=== PATIENT | female | born 1950 | race Caucasian/White ===

== ENCOUNTER 2016-10-17 16:53 | Emergency (ER) | payer MEDICARE, OTHER ==
--- NOTE | ~2016-10-17 | CT2 ---
[facility] A Service of [facility] RADIOLOGY TEXT RESULTS PATIENT: ALEJANDRO RADER LOCATION: [facility] : 49 UNIT #: [id number] AGE: [address]: Cesilia Spears MD SEX: F ORDER DR: [id number] [facility] [address] [place], [place] [address] [id number] E MR#: [id number] Acc #: [id number] NAME: ALEJANDRO RADER : 1950 SEX: F STUDY DATE/TIME: 10/17/2016 18:30 UNIT: [facility] ROOM: STUDY DESCRIPTION: CT Abd and Pelv W Cont Attending Physician: Cesilia Spears M.D. Ordering Physician: Cesilia Spears M.D. Primary Care Physician: Charles Lindsey M.D. MEDICAL IMAGING REPORT This report is preliminary unless electronic signature is present EXAM CT abdomen and pelvis with oral and IV contrast. HISTORY Nausea, vomiting, diarrhea for 1 week. Back pain. TECHNIQUE CT abdomen and pelvis was performed with oral and IV contrast. This CT exam was performed with one or more of the following radiation dose reduction techniques: automatic exposure control, adjustment of mA and/or kV according to patient size, and iterative reconstruction. FINDINGS CT abdomen: There is subsegmental atelectasis in both lung bases, greater in the inferior right lower lobe. Bfqm-qd-kmkurkvs elevation of the right hemidiaphragm. The liver, gallbladder, spleen, pancreas, and adrenal glands are unremarkable. Small bilateral incidental renal cysts. No bowel dilatation. Normal appendix. Spinal fusion from L3-S1 with grade II spondylolisthesis of L5 on S1. Streak artifact from the fusion hardware partly degrades multiple images. CT pelvis: No free fluid. Hysterectomy. Urinary bladder is unremarkable. IMPRESSION 1. No acute findings in the abdomen or pelvis. 2. No urinary obstruction or bowel obstruction. No ascites or inflammatory stranding. 3. Normal appendix. 4. Multilevel lower lumbar spinal fusion. Hysterectomy. Dictated by... [facility] A Service of [facility] RADIOLOGY TEXT RESULTS PATIENT: ALEJANDRO RADER LOCATION: [facility] : 49 UNIT #: [id number] AGE: [address]: Cesilia Spears MD SEX: F ORDER DR: Lance Rodriguez M.D. THIS IS AN ELECTRONICALLY VERIFIED REPORT Lance Rodriguez M.D. at 10/18/2016 10:42 PM DFL/vinnie TD: 10/18/2016 14:25 JOB #: [id number] MEDICAL IMAGING REPORT COPY
[~2016-10-17 16:53] MED LIST: ABILIFY; ABILIFY2 MG PO; ACETAMINOPHEN P1 TA5 PO; ALBUTEROL17 GM INH; ALENDRONATE SOD70 M1 PO; ALPRAZOLAM PO; ALPRAZOLAM0.25 MG PO; ALPRAZOLAM1 M1 PO; ALPRAZOLAM1 MG; ALPRAZOLAM1 MG PO; AMBIEN PO; AMBIEN10 MG PO; AMLODIPINE BESYL5 MG PO; AVELOX400 M1 PO; BACTROBAN; BUMEX PO; BUMEX1 MG PO; BYSTOLIC5 MG PO; CALAN PO; CALAN SR PO; CALCIUM + D 6001 TA1 PO; CALCIUM CARB PO; CECLOR PO; CEFAZOLIN IV; CIPRO PO; COL-RITE50 MG PO; COMBIVENT U/D3 M1 INH; COMBIVENT14.7 GM INH; COREG3.125 MG PO; CYMBALTA PO; DAKIN'S MODIF1000 ML EXT; DELTASONE20 MG PO; DESYREL50 MG DOB; DESYREL50 MG PO; DULOXETINE HCL60 M1 PO; EFFEXOR; EFFEXOR PO; FAMOTIDINE PO; FAST RELIEF LAX10 MG PR; FLEXERIL10 MG PO; FOSAMAX70 MG PO; GLUCOPHAGE XR500 MG PO; HYDRALAZINE HCL50 MG PO; HYDROCODON-ACE1 EAC5 PO; IBUPROFEN800 MG PO; IPRATR-ALBUTEROL3 ML INH; K-DUR20 ME2 PO; KCL PO; LEVAQUIN PO; LEVAQUIN750 M1 PO; LIBRIUM25 M1 PO; LISINOPRIL PO; LOPRESSOR PO; LORTAB 5/500 TA1 TA1 PO; LORTAB 7.5-5001 TAB PO; MACROBID100 MG DOB; MAG-OX 400400 MG PO; MEDROL DOSEPAK4 MG DOB; MEDROL4 MG/DOSE- PO; MICONAZOLE 11 EACH TOP; MS CONTIN30 MG PO; MULTI-VITAMIN1 TAB PO; MULTIVITAMIN1 UDCAP PO; NORCO 10-325 TA1 TAB PO; NORCO 10/325 TA1 TAB PO; NORCO 10/3251 TAB PO; NORCO 5/325 TAB1 TAB PO; NORVASC PO; PATIENT'S PHARMACY; PAXIL PO; PERCOCET PO; PHENERGAN PO; PHENERGAN PR; PRAVACHOL PO; PREDNISONE PO; PREMARIN; PREMARIN PO; PRISTIQ50 MG PO; PROAIR RESPICL90 MCG; PROAIR RESPICL90 MCG INH; PROTONIX PO; PULMICORT200 MCG/AE INH; SANTYL15 G1 TP; SENNA PO; SEROQUEL XR1 EACH PO; SEROQUEL25 MG PO; SINGULAIR PO; SYMBICORT INH; TOPROL XL; TOPROL XL PO; TRAMADOL HCL50 M2 PO; TYLOX1 CAP 5/50 DOB; VASOLEX OINTMEN30 GM; VICODIN 5/500 T1 TAB PO; XANAX0.5 M1 PO; XANAX1 MG PO; ZESTORETIC 20/11 TAB PO; ZOCOR PO; ZOFRAN PO
[2016-10-17 16:57] LABS: BASOPHIL# 0.1 X10e3 (0-0.3); BASOPHIL% 0.4 % (0-2.5); EOSINOPHIL# 0.5 X10e3 (0-0.7); EOSINOPHIL% 4.2 % (0.0-7.0); HEMATOCRIT 38.4 % (35.0-45.0); HEMOGLOBIN 12.5 gm/dL (12.0-16.0); LYMPHOCYTE# 1.7 X10e3 (1.0-3.5); MEAN CELL VOLUME 91.1 FL (83-96); MEAN CORPUSCULAR HEMOGLOBIN 29.5 PG (28-34); MEAN CORPUSCULAR HGB CONC 32.4 g/dL (30-36); MEAN PLATELET VOLUME 8.4 FL (6.5-11.5); MONOCYTE# 0.9 X10e3 (0-1.0); MONOCYTE% 6.8 % (3.0-12.0); NEUTROPHIL# 9.8 X10e3 (1.5-7.1); NEUTROPHIL% 75.6 % (40-75); PLATELET COUNT 456 X10e3 (140-420); RED BLOOD COUNT 4.22 X10e (3.90-5.30); RED CELL DISTRIBUTION WIDTH 16.5 % (11.0-15.5); WHITE BLOOD COUNT 12.9 X10e3 (4.0-10.5)
[2016-10-17 17:09] LABS: DIFF IND NO
[2016-10-17 17:19] LABS: ALBUMIN SERUM 3.8 g/dL (3.5-5.0); ALKALINE PHOSPHATASE 79 U/L (32-92); ALT (SGPT) 13 U/L (10-40); AMYLASE 87 U/L (0-46); AST (SGOT) 27 U/L (10-42); BILIRUBIN, DIRECT 0.1 mg/dL (0.0-0.2); BILIRUBIN,INDIRECT 0.5 mg/dL (0.0-0.9); BILIRUBIN,TOTAL 0.6 mg/dL (0.2-2.0); BLOOD UREA NITROGEN 13 mg/dL (9-23); BUN/CREATININE RATIO 21.66; CALCIUM SERUM 10.3 mg/dL (8.4-10.2); CARBON DIOXIDE 34 mmol/L (22-31); CHLORIDE 98 mmol/L (100-111); CREATININE SERUM 0.6 mg/dL (0.6-1.4); GLOM FILT RATE Estimated ABOVE60 mL/min (>60); GLUCOSE FASTING 122 mg/dL (70-110); LIPASE 45 U/L (22-51); SODIUM 141 mmol/L (135-145)
[2016-10-17 20:14] LABS: URINE SOURCE CLEAN CATCH
[2016-10-17 20:22] LABS: URINE APPEARANCE CLEAR; URINE BILIRUBIN NEG (NEG); URINE BLOOD NEG (NEG); URINE COLOR YELLOW; URINE GLUCOSE NEG (NEG); URINE KETONE NEG (NEG); URINE LEUKOCYTE ESTERASE TRACE (NEG); URINE NITRATE NEG (NEG); URINE PROTEIN NEG (NEG); URINE SPECIFIC GRAVITY 1.021 (1.003-1.035); URINE UROBILINOGEN 0.2 MG/DL (NEG)
[2016-10-17 20:25] LABS: CULTURE INDICATED? YES; URBCS1 AUWI 0-2 /[HPF] (0-2); URINE BACTERIA AUWI 2+ (NEGATIVE); URINE SQUAMOUS EPITHELIAL CELL OCC /[HPF]
== END 2016-10-17 21:30 | disposition home or self-care (01) ==
LOC: CED 16:53
PROVIDERS: Student in an Organized Health Care Education/Training Program
DX: A09 Infectious gastroenteritis and colitis, unspecified (principal); E11.9 Type 2 diabetes mellitus without complications; I10 Essential (primary) hypertension; J45.909 Unspecified asthma, uncomplicated; Z90.710 Acquired absence of both cervix and uterus; Z88.0 Allergy status to penicillin; Z88.1 Allergy status to other antibiotic agents; Z98.890 Other specified postprocedural states
CPT/HCPCS: 36415; 74177; 80048; 80076; 81003; 82150; 83690; 85025; 87086; 87088; 87186; 96361; 96374; 96375; 99284; J2270; J2405; J2550; Q9967

== ENCOUNTER 2016-12-06 16:54 | Emergency (ER) | payer MEDICARE, OTHER ==
--- NOTE | ~2016-12-06 | CR170 ---
[facility]. [facility] A Service of [facility] RADIOLOGY TEXT RESULTS PATIENT: ALEJANDRO RADER LOCATION: [facility] : 49 UNIT #: [id number] AGE: [address]: Deepika Garzon SEX: F ORDER DR: [id number] [facility] [address] [place], [place] [address] [id number] E MR#: [id number] Acc #: [id number] NAME: ALEJANDRO RADER : 1950 SEX: F STUDY DATE/TIME: 12/06/2016 16:53 UNIT: [facility] ROOM: STUDY DESCRIPTION: CR Knee 2 Views Rt Attending Physician: Deepika Garzon P.A.-C. Ordering Physician: Deepika Garzon P.A.-C. Primary Care Physician: Charles Lindsey M.D. MEDICAL IMAGING REPORT This report is preliminary unless electronic signature is present EXAM Right knee, 2 views. HISTORY Knee pain and swelling for 1 week. No recent injury. FINDINGS 2 views of the right knee demonstrate total knee arthroplasty with long-stem tibial and femoral components. The proximal margin of the femoral component is not included. The alignment appears satisfactory. No fracture or effusion. IMPRESSION No acute finding. Revision total knee arthroplasty with the visualized components in satisfactory position. Dictated by... Lance Rodriguez M.D. THIS IS AN ELECTRONICALLY VERIFIED REPORT Lance Rodriguez M.D. at 12/06/2016 11:44 PM NEETA/yefri TD: 12/06/2016 19:16 JOB #: [id number] MEDICAL IMAGING REPORT Page 1 of 1 COPY
[2016-12-06 17:56] LABS: URINE BACTERIA 2+ (NEG); URINE HYALINE CAST 0-2 /[HPF]; URINE SQUAMOUS EPITHELIAL CELL OCCAS /[HPF]; URINE TRANSITIONAL EPI CELLS OCCAS /[HPF]
== END 2016-12-06 19:13 | disposition home or self-care (01) ==
LOC: CED 16:54
PROVIDERS: Physician Assistant
DX: N39.0 Urinary tract infection, site not specified (principal); M25.561 Pain in right knee; G89.29 Other chronic pain
CPT/HCPCS: 73560; 87086; 87088; 87186; 96372; 96374; 96375; 99284; J1885; J2270; J2405

== ENCOUNTER 2017-01-19 19:49 | Inpatient (IN) | payer MEDICARE, OTHER ==
--- NOTE | ~2017-01-19 | CT71 ---
[facility] A Service [facility] RADIOLOGY TEXT RESULTS PATIENT: ALEJANDRO RADER LOCATION: [facility] : 48 UNIT #: [id number] AGE: [address]: Tone Moreno MD SEX: F ORDER DR: [id number] [facility] [address] [place], [place] [address] [id number] I MR#: [id number] Acc #: [id number] NAME: ALEJANDRO RADER : 1950 SEX: F STUDY DATE/TIME: 01/19/2017 23:29 UNIT: [facility] ROOM: [id number] STUDY DESCRIPTION: CT Head Wo Contrast Attending Physician: Tone Moreno M.D. Ordering Physician: Cesilia Spears M.D. Primary Care Physician: Charles Lindsey M.D. MEDICAL IMAGING REPORT This report is preliminary unless electronic signature is present EXAM CT scan head without contrast. INDICATIONS Fall with head trauma and pain in right forehead, laceration to right eye. Injury happened today. TECHNIQUE This CT exam was performed with one or more of the following radiation dose reduction techniques: Automatic exposure control, adjustment of mA and/or kV according to patient size, and iterative reconstruction. COMPARISON 12/12/15. FINDINGS Unenhanced images were obtained through the brain. There is mild generalized atrophy. There are no masses or extraaxial fluid collections or hemorrhage. Skull is intact. IMPRESSION Normal study except for mild atrophy. Dictated by... Emerson Benavidez M.D. THIS IS AN ELECTRONICALLY VERIFIED REPORT Emerson Benavidez M.D. at 01/20/2017 1:22 PM FEL/bd TD: 01/20/2017 09:45 JOB #: [id number] [facility] A Service [facility] RADIOLOGY TEXT RESULTS PATIENT: ALEJANDRO RADER LOCATION: [facility] [id number] : 49 UNIT #: [id number] AGE: [address]: Tone Moreno MD SEX: F ORDER DR: MEDICAL IMAGING REPORT Page 1 of 1 COPY
--- NOTE | ~2017-01-19 | CT57 ---
[facility] A Service of [facility] RADIOLOGY TEXT RESULTS PATIENT: ALEJANDRO RADER LOCATION: [facility] [id number] : [birth year] UNIT #: [id number] AGE: [address]: Tone Moreno MD SEX: F ORDER DR: [id number] [facility] [address] [place], [place] [address] [id number] I MR#: [id number] Acc #: [id number] NAME: ALEJANDRO RADER : 1950 SEX: F STUDY DATE/TIME: 01/19/2017 23:41 UNIT: [facility] ROOM: [id number] STUDY DESCRIPTION: CT Chest Wo Cont Attending Physician: Tone Moreno M.D. Ordering Physician: Cesilia Spears M.D. Primary Care Physician: Charles Lindsey M.D. MEDICAL IMAGING REPORT This report is preliminary unless electronic signature is present EXAM CT scan of the chest without contrast. INDICATIONS Fall with trauma to face and neck. Shortness of air starting today. COMPARISON 12/18/15. TECHNIQUE Axial 5 mm images were obtained through the chest without IV contrast. This CT exam was performed with one or more of the following radiation dose reduction techniques: automatic exposure control, adjustment of mA and/or kV according to patient size, and iterative reconstruction. FINDINGS There is dense consolidation in the right lower lobe and, to a lesser degree, in the left base with air bronchograms. This involves the posteromedial basilar segments. There is also patchy infiltrate in the left lower lobe anterior segment. The upper lobes are clear. The aorta is normal in size. Visualized portions of the upper abdomen are normal. Bones show mild degenerative changes. IMPRESSION Dense, left greater than right, consolidation in the lung bases consistent with pneumonia. There are air bronchograms present. Dictated by... Emerson Benavidez M.D. THIS IS AN ELECTRONICALLY VERIFIED REPORT Emerson Benavidez M.D. at 01/20/2017 1:21 PM [facility] A Service of [facility] RADIOLOGY TEXT RESULTS PATIENT: ALEJANDRO RADER LOCATION: [facility] [id number] : 49 UNIT #: [id number] AGE: [address]: Tone Moreno MD SEX: F ORDER DR: Tyron TD: 01/20/2017 09:42 JOB #: [id number] MEDICAL IMAGING REPORT Page 1 of 1 COPY
--- NOTE | ~2017-01-19 | EKG ---
PATIENT: ALEJANDRO RADER UNIT #: [id number] Ventricular Rate: 83 BPM Atrial Rate: 83 BPM P-R Interval: 132 ms QRS Duration: 90 ms Q-T Interval: 338 ms QTC Calculation(Bezet): 397 ms P [place]: 72 degrees Calculated R [place]: 61 degrees Calculated T [place]: 67 degrees Diagnosis Line: Normal sinus rhythm Diagnosis Line: Normal ECG Diagnosis Line: No previous ECGs available Diagnosis Line: Confirmed by ISABELA MANDEL MD ([id number]) on Diagnosis Line: 01/20/2017 9:13:43 PM INTERPRETING MD: TALIB
--- NOTE | ~2017-01-19 | CT52 ---
[facility] A Service of [facility] RADIOLOGY TEXT RESULTS PATIENT: ALEJANDRO RADER LOCATION: [facility] [address] : 49 UNIT #: [id number] AGE: [address]: Tone Moreno MD SEX: F ORDER DR: [id number] [facility] [address] [place], [place] [address] [id number] I MR#: [id number] Acc #: [id number] NAME: ALEJANDRO RADER : 1950 SEX: F STUDY DATE/TIME: 01/19/2017 23:38 UNIT: [facility] ROOM: [id number] STUDY DESCRIPTION: CT Cervical Spine Wo Cont Attending Physician: Tone Moreno M.D. Ordering Physician: Cesilia Spears M.D. Primary Care Physician: Charles Lindsey M.D. MEDICAL IMAGING REPORT This report is preliminary unless electronic signature is present EXAM Cervical spine CT scan HISTORY Fall with head trauma and right-sided neck pain. The patient fell today. COMPARISON 02/08/2014 TECHNIQUE Axial 2.0 mm images were obtained through the cervical spine. This CT exam was performed with one or more of the following radiation dose reduction techniques: automatic exposure control, adjustment of mA and/or kV according to patient size, and iterative reconstruction. FINDINGS The alignment of the vertebral bodies is normal. There are anterior osteophyte formations at C5-6. There is some facet degenerative changes at C3-4 and 4-5. There is no fracture or subluxation. IMPRESSION Stable degenerative changes. No evidence of acute injury. Dictated by... Emerson Benavidez M.D. THIS IS AN ELECTRONICALLY VERIFIED REPORT Emerson Benavidez M.D. at 01/20/2017 1:21 PM MARIOLA/sydney TD: 01/20/2017 09:43 [facility] A Service of [facility] RADIOLOGY TEXT RESULTS PATIENT: ALEJANDRO RADER LOCATION: [facility] [id number] : 49 UNIT #: [id number] AGE: [address]: Tone Moreno MD SEX: F ORDER DR: JOB #: [id number] MEDICAL IMAGING REPORT Page 1 of 1 COPY
[2017-01-19 21:40] LABS: ARTERIAL BLD GAS O2 SATURATION 93.6 % (90.0-100.0); ARTERIAL BLOOD GAS ALLEN TEST NORMAL; ARTERIAL BLOOD GAS ART SITE RIGHT RADIAL; ARTERIAL BLOOD GAS CARBOXY HB 1.4 %sat (0.0-9.0); ARTERIAL BLOOD GAS DELIVERY NASAL CANNULA; ARTERIAL BLOOD GAS HCO3 36.5 mmol/L; ARTERIAL BLOOD GAS MET HB 0.8 %sat (0.0-2.0); ARTERIAL BLOOD GAS pH 7.338 (7.350-7.450); ARTERIAL DRAW? YES
[2017-01-19 23:04] LABS: BASOPHIL# 0.1 X10e3 (0-0.3); BASOPHIL% 0.8 % (0-2.5); DIFF IND NO; EOSINOPHIL# 0.5 X10e3 (0-0.7); EOSINOPHIL% 6.4 % (0.0-7.0); HEMATOCRIT 35.9 % (35.0-45.0); HEMOGLOBIN 11.3 gm/dL (12.0-16.0); LYMPHOCYTE# 1.5 X10e3 (1.0-3.5); LYMPHOCYTE% 19.8 % (17.0-45.0); MEAN CORPUSCULAR HEMOGLOBIN 28.2 PG (28-34); MEAN CORPUSCULAR HGB CONC 31.4 g/dL (30-36); MONOCYTE# 0.4 X10e3 (0-1.0); MONOCYTE% 5.2 % (3.0-12.0); NEUTROPHIL# 5.2 X10e3 (1.5-7.1); NEUTROPHIL% 67.8 % (40-75); PLATELET COUNT 277 X10e3 (140-420); RED BLOOD COUNT 3.99 X10e (3.90-5.30); RED CELL DISTRIBUTION WIDTH 16.4 % (11.0-15.5); WHITE BLOOD COUNT 7.7 X10e3 (4.0-10.5)
[2017-01-19 23:17] LABS: PARTIAL THROMBOPLASTIN TIME 23.2 SECONDS (23.5-31.3)
[2017-01-19 23:29] LABS: ALBUMIN SERUM 3.5 g/dL (3.5-5.0); ALKALINE PHOSPHATASE 78 U/L (32-92); ALT (SGPT) 13 U/L (10-40); AST (SGOT) 17 U/L (10-42); BILIRUBIN,TOTAL 0.5 mg/dL (0.2-2.0); BLOOD UREA NITROGEN 13 mg/dL (9-23); BUN/CREATININE RATIO 18.57; CARBON DIOXIDE 30 mmol/L (22-31); CHLORIDE 103 mmol/L (100-111); CREATININE SERUM 0.7 mg/dL (0.6-1.4); GLOM FILT RATE Estimated 89.7 mL/min (>60); GLUCOSE FASTING 97 mg/dL (70-110); POTASSIUM 4.1 mmol/L (3.5-5.1); PROTEIN TOTAL SERUM 7.2 g/dL (6.0-8.3); SODIUM 141 mmol/L (135-145)
[2017-01-19 23:33] LABS: BILIRUBIN, DIRECT <0.1 mg/dL (0.0-0.2); BILIRUBIN,INDIRECT 0.4 mg/dL (0.0-0.9)
[2017-01-20] LABS: URINE SOURCE CLEAN CATCH
[2017-01-20 00:06] LABS: URINE APPEARANCE CLOUDY; URINE BILIRUBIN NEG (NEG); URINE BLOOD TRACE (NEG); URINE COLOR YELLOW; URINE GLUCOSE NEG (NEG); URINE KETONE NEG (NEG); URINE LEUKOCYTE ESTERASE 1+ (NEG); URINE NITRATE NEG (NEG); URINE PROTEIN NEG (NEG); URINE SPECIFIC GRAVITY 1.012 (1.003-1.035); URINE UROBILINOGEN 0.2 MG/DL (NEG)
[2017-01-20 00:09] LABS: CULTURE INDICATED? YES; URBCS1 AUWI 0-2 /[HPF] (0-2); URINE BACTERIA AUWI 4+ (NEGATIVE); URINE SQUAMOUS EPITHELIAL CELL OCC /[HPF]
[2017-01-20 03:45] LABS: BASOPHIL% 0.5 % (0-2.5); EOSINOPHIL# 0.1 X10e3 (0-0.7); EOSINOPHIL% 1.4 % (0.0-7.0); HEMATOCRIT 36.2 % (35.0-45.0); HEMOGLOBIN 11.3 gm/dL (12.0-16.0); LYMPHOCYTE# 0.5 X10e3 (1.0-3.5); LYMPHOCYTE% 7.8 % (17.0-45.0); MEAN CELL VOLUME 89.1 FL (83-96); MEAN CORPUSCULAR HEMOGLOBIN 27.9 PG (28-34); MEAN CORPUSCULAR HGB CONC 31.3 g/dL (30-36); MEAN PLATELET VOLUME 8.1 FL (6.5-11.5); MONOCYTE# 0.1 X10e3 (0-1.0); NEUTROPHIL# 6.2 X10e3 (1.5-7.1); NEUTROPHIL% 89.3 % (40-75); PLATELET COUNT 298 X10e3 (140-420); RED BLOOD COUNT 4.06 X10e (3.90-5.30); WHITE BLOOD COUNT 6.9 X10e3 (4.0-10.5)
[2017-01-20 03:46] LABS: DIFF IND NO
[2017-01-20 04:11] LABS: CREATININE SERUM 0.5 mg/dL (0.6-1.4); GLOM FILT RATE Estimated 100.2 mL/min (>60); POTASSIUM 3.9 mmol/L (3.5-5.1)
[2017-01-20] MEDS ORDERED: PERCOCET7.5 PO (04:47)
[2017-01-20] MEDS ORDERED: ZOFRAN PO (04:47)
[2017-01-20] MEDS ORDERED: EFFEXOR PO (04:48)
[2017-01-20] MEDS ORDERED: NORVASC10 MG PO (04:49)
[2017-01-20] MEDS ORDERED: XANAX1 MG PO (04:49)
[2017-01-20] MEDS ORDERED: MAGNESIUM-VIT1 EACH PO (04:50)
[2017-01-20] MEDS ORDERED: DALIRESP500 MCG PO (04:50)
== END 2017-01-20 05:53 | disposition left against medical advice (07) | DRG 190 ==
LOC: CED 19:49 → CEDOF 01-20 00:25 → CED 01-20 00:43 → CEDOF 01-20 00:43
PROVIDERS: Student in an Organized Health Care Education/Training Program
DX: J44.0 Chronic obstructive pulmonary disease with (acute) lower respiratory infection (principal); J96.01 Acute respiratory failure with hypoxia; J96.02 Acute respiratory failure with hypercapnia; J18.9 Pneumonia, unspecified organism; I10 Essential (primary) hypertension; Z86.73 Personal history of transient ischemic attack (TIA), and cerebral infarction without residual deficits; E11.9 Type 2 diabetes mellitus without complications; Z79.84 Long term (current) use of oral hypoglycemic drugs; Z90.710 Acquired absence of both cervix and uterus; Z96.651 Presence of right artificial knee joint; W07.XXXA Fall from chair, initial encounter; S00.211A Abrasion of right eyelid and periocular area, initial encounter; Z88.0 Allergy status to penicillin; Z88.2 Allergy status to sulfonamides
CPT/HCPCS: 36415; 36600; 70450; 71250; 72125; 80048; 80076; 81003; 82803; 83605; 85025; 85610; 85730; 87040; 87086; 93005; 94640; 94660; 94760; 96374; 99285; J1956; J2920

== ENCOUNTER 2017-03-16 12:47 | Emergency (ER) | payer MEDICARE, OTHER ==
[~2017-03-16] VITALS: Ht 167.6 cm; Wt 67.1 kg
--- NOTE | ~2017-03-16 | CR170 ---
[facility] A Service of [facility] RADIOLOGY TEXT RESULTS PATIENT: ALEJANDRO RADER LOCATION: [facility] : 48 UNIT #: [id number] AGE: [address]: Cesilia Spears MD SEX: F ORDER DR: [id number] [facility] [address] [place], [place] [address] [id number] E MR#: [id number] Acc #: [id number] NAME: ALEJANDRO RADER : 1950 SEX: F STUDY DATE/TIME: 03/16/2017 14:43 UNIT: [facility] ROOM: STUDY DESCRIPTION: CR Knee 2 Views Rt Attending Physician: Cesilia Spears M.D. Ordering Physician: Cesilia Spears M.D. Primary Care Physician: Charles Lindsey M.D. MEDICAL IMAGING REPORT This report is preliminary unless electronic signature is present EXAM Right knee 2 views, 03/16/2017 1443 hours CLINICAL HISTORY Patient fell at home on 03/13/2017. Knee pain. COMPARISON 12/06/2016 FINDINGS AP and lateral views demonstrate prior knee replacement with no acute fracture or dislocation. IMPRESSION Prior knee replacement surgery. There is no fracture or dislocation. Dictated by... Gianna Escudero M.D. THIS IS AN ELECTRONICALLY VERIFIED REPORT Gianna Escudero M.D. at 03/17/2017 9:25 AM VALENCIA/harrison TD: 03/16/2017 23:18 JOB #: [id number] MEDICAL IMAGING REPORT Page 1 of 1 COPY
--- NOTE | ~2017-03-16 | CR230 ---
[facility] A Service of [facility] RADIOLOGY TEXT RESULTS PATIENT: ALEJANDRO RADER LOCATION: [facility] : 49 UNIT #: [id number] AGE: [address]: Cesilia Spears MD SEX: F ORDER DR: [id number] [facility] [address] [place], [place] [address] [id number] E MR#: [id number] Acc #: [id number] NAME: ALEJANDRO RADER : 1950 SEX: F STUDY DATE/TIME: 03/16/2017 UNIT: [facility] ROOM: STUDY DESCRIPTION: CR Shoulder Min 2 View Rt Attending Physician: Cesilia Spears M.D. Ordering Physician: Cesilia Spears M.D. Primary Care Physician: Charles Lindsey M.D. MEDICAL IMAGING REPORT This report is preliminary unless electronic signature is present EXAM Right shoulder 3 views 03/16/2017 1445 hours HISTORY Patient fell at home on 03/13/2017. Right shoulder pain. COMPARISON Chest film, 03/14/2016. FINDINGS AP views in internal-external rotation and a scapula Y-view demonstrate no acute fracture or dislocation. There is a small sclerotic area in the greater tuberosity, unchanged. There is stable spurring at the glenohumeral joint. IMPRESSION Stable degenerative changes at the glenohumeral joint. There is no acute fracture or dislocation. Dictated by... Gianna Escudero M.D. THIS IS AN ELECTRONICALLY VERIFIED REPORT Gianna Escudero M.D. at 03/17/2017 9:25 AM VALENCIA/carlos TD: 03/16/2017 23:15 JOB #: [id number] MEDICAL IMAGING REPORT Page 1 of 1 COPY
--- NOTE | ~2017-03-16 | CR63 ---
[facility] A Service of [facility] RADIOLOGY TEXT RESULTS PATIENT: ALEJANDRO RADER LOCATION: [facility] : 49 UNIT #: [id number] AGE: [address]: Cesilia Spears MD SEX: F ORDER DR: [id number] [facility] [address] [place], [place] [address] [id number] E MR#: [id number] Acc #: [id number] NAME: ALEJANDRO RADER : 1950 SEX: F STUDY DATE/TIME: 03/16/2017 14:47 UNIT: [facility] ROOM: STUDY DESCRIPTION: CR Chest 2 View Attending Physician: Cesilia Spears M.D. Ordering Physician: Cesilia Spears M.D. Primary Care Physician: Charles Lindsey M.D. MEDICAL IMAGING REPORT This report is preliminary unless electronic signature is present EXAM Chest 2 views dated 03/16/2017. COMPARISON Single view chest dated 03/14/2016. HISTORY Patient fell at home on Thursday with right shoulder and chest pain. FINDINGS 2 views of the chest were obtained. Bibasilar infiltrates and atelectasis are noted without any significant pleural effusion or pneumothorax. Heart and mediastinum are of normal size. Mild arthritic changes are in bilateral shoulders. Postoperative hardware is noted in the yyy-wi-vphui lumbar spine. Mild degenerative changes of the thoracic spine. Dictated by... Toney Mcdowell M.D. THIS IS AN ELECTRONICALLY VERIFIED REPORT Toney Mcdowell M.D. at 03/18/2017 3:17 PM CPR/pcl TD: 03/17/2017 00:19 JOB #: [id number] MEDICAL IMAGING REPORT Page 1 of 1 COPY
[~2017-03-16 12:47] MED LIST changes: +DALIRESP500 MCG PO; +MAGNESIUM-VIT1 EACH PO; +NORVASC10 MG PO; +PERCOCET7.5 PO
== END 2017-03-16 16:07 | disposition home or self-care (01) ==
LOC: CED 12:47
DX: S80.01XA Contusion of right knee, initial encounter (principal); S40.011A Contusion of right shoulder, initial encounter; J44.9 Chronic obstructive pulmonary disease, unspecified; I11.0 Hypertensive heart disease with heart failure; I50.9 Heart failure, unspecified; J45.909 Unspecified asthma, uncomplicated; Z88.0 Allergy status to penicillin; Z88.2 Allergy status to sulfonamides; W01.198A Fall on same level from slipping, tripping and stumbling with subsequent striking against other object, initial encounter; Y92.009 Unspecified place in unspecified non-institutional (private) residence as the place of occurrence of the external cause
CPT/HCPCS: 71020; 73030; 73560; 73610; 99284

== ENCOUNTER 2017-03-23 15:20 | Emergency (ER) | payer MEDICARE, OTHER ==
[~2017-03-23] VITALS: Ht 167.6 cm; Wt 67.1 kg
--- NOTE | ~2017-03-23 | CR219 ---
[facility] A Service of [facility] RADIOLOGY TEXT RESULTS PATIENT: ALEJANDRO RADER LOCATION: [facility] : 48 UNIT #: [id number] AGE: [address]: Jada Bhatti APRN SEX: F ORDER DR: [id number] [facility] [address] [place], [place] [address] [id number] E MR#: [id number] Acc #: [id number] NAME: ALEJANDRO RADER : 1950 SEX: F STUDY DATE/TIME: 03/23/2017 16:07 UNIT: [facility] ROOM: STUDY DESCRIPTION: CR Sacrum and Coccyx Min 2 Vie Attending Physician: Jada Bhatti A.P.R.N. Ordering Physician: Ed Joey Abel M.D. Primary Care Physician: Charles Lindsey M.D. MEDICAL IMAGING REPORT This report is preliminary unless electronic signature is present EXAM Sacrum and coccyx 3 views HISTORY Back pain after fall 4 days ago. FINDINGS AP and lateral views of the sacrum and coccyx demonstrate grade 2 spondylolisthesis of L5 on S1. Old healed fracture left inferior pubic ramus. Surgical jamar in the lower pelvis. Mild degenerative changes in the sacroiliac joints. No acute fracture. IMPRESSION No acute findings. Dictated by... Lance Rodriguez M.D. THIS IS AN ELECTRONICALLY VERIFIED REPORT Lance Rodriguez M.D. at 03/24/2017 11:41 PM THELMAL/harrison TD: 03/24/2017 02:36 JOB #: [id number] MEDICAL IMAGING REPORT Page 1 of 1 COPY
--- NOTE | ~2017-03-23 | CR181 ---
[facility] A Service of [facility] RADIOLOGY TEXT RESULTS PATIENT: ALEJANDRO RADER LOCATION: [facility] : 48 UNIT #: [id number] AGE: [address]: Jada Bhatti APRN SEX: F ORDER DR: [id number] [facility] [address] [place], [place] [address] [id number] E MR#: [id number] Acc #: [id number] NAME: ALEJANDRO RADER : 1950 SEX: F STUDY DATE/TIME: 03/23/2017 16:07 UNIT: [facility] ROOM: STUDY DESCRIPTION: CR Lumbar Spine 2 or 3 Views Attending Physician: Jada Bhatti A.P.R.N. Ordering Physician: Ed Joey Abel M.D. Primary Care Physician: Charles Lindsey M.D. MEDICAL IMAGING REPORT This report is preliminary unless electronic signature is present EXAM Lumbar spine 3 views HISTORY Back pain for 4 days after fall. FINDINGS 3 views lumbar spine demonstrate mild right upper lumbar and thoracolumbar junction curve. Posterior fusion hardware extends from L3 to S1. Grade 2 spondylolisthesis of L5 on S1 is stable compared to 02/14/2012. Lower lumbar laminectomies. Moderate degenerative changes in the lower thoracic and upper lumbar spine. Laminectomies at L4 and L5. IMPRESSION 1. No acute findings. 2. No recent fracture. 3. Stable grade 2 spondylolisthesis of L5 on S1. 4. Multilevel degenerative changes lower thoracic and lumbar spine. Dictated by... Lance Rodriguez M.D. THIS IS AN ELECTRONICALLY VERIFIED REPORT Lance Rodriguez M.D. at 03/24/2017 11:41 PM NEETA/harrison TD: 03/24/2017 02:32 JOB #: [id number] MEDICAL IMAGING REPORT Page 1 of 1 COPY
[2017-03-23 17:07] LABS: URINE SOURCE CLEAN CATCH
[2017-03-23 17:17] LABS: URINE APPEARANCE TURBID; URINE BILIRUBIN NEG (NEG); URINE BLOOD NEG (NEG); URINE COLOR YELLOW; URINE GLUCOSE NEG (NEG); URINE KETONE NEG (NEG); URINE LEUKOCYTE ESTERASE TRACE (NEG); URINE NITRATE NEG (NEG); URINE PROTEIN NEG (NEG); URINE SPECIFIC GRAVITY 1.014 (1.003-1.035); URINE UROBILINOGEN 0.2 MG/DL (NEG)
[2017-03-23 17:19] LABS: CULTURE INDICATED? NO; URBCS1 AUWI 0-2 /[HPF] (0-2); URINE BACTERIA AUWI NEG (NEGATIVE); URINE SQUAMOUS EPITHELIAL CELL FEW /[HPF]
== END 2017-03-23 17:43 | disposition home or self-care (01) ==
LOC: CFTX 15:20 → CED 15:20 → CFTX 17:09
PROVIDERS: Nurse Practitioner
DX: S33.9XXA Sprain of unspecified parts of lumbar spine and pelvis, initial encounter (principal); S70.01XA Contusion of right hip, initial encounter; I10 Essential (primary) hypertension; J45.909 Unspecified asthma, uncomplicated; M19.90 Unspecified osteoarthritis, unspecified site; Z79.899 Other long term (current) drug therapy; Z88.0 Allergy status to penicillin; Z88.2 Allergy status to sulfonamides; Z88.8 Allergy status to other drugs, medicaments and biological substances; W18.30XA Fall on same level, unspecified, initial encounter; Y92.009 Unspecified place in unspecified non-institutional (private) residence as the place of occurrence of the external cause
CPT/HCPCS: 72100; 72220; 81003; 96372; 99284; J1885